=== PATIENT | female | born 1985 | race Hispanic/Latino ===

== ENCOUNTER 2024-12-14 16:22 | Emergency (ER) | payer BC ==
[~2024-12-14] VITALS: Ht 160 cm; Wt 63.5 kg
[2024-12-14 16:36] VITALS: BP 98/57; PULSE 60; RESP 16; TEMP 98.3; O2SAT 98
--- NOTE | 2024-12-14 16:46 | NUR ---
EAR CANNAL CLEANED BY
[2024-12-14] MEDS ORDERED: AMOX500C2 PO (16:48)
[2024-12-14] MEDS ORDERED: ISOP30DR11 OT (16:48)
--- NOTE | 2024-12-14 16:48 | ERN ---
General Chief Complaint: Earache Stated Complaint: RIGHT EAR PAIN Time Seen by MD: 16:27 Source: patient, family History of Present Illness Initial Comments Patient is a 39-year-old female coming in to be evaluated for right ear pain. Per patient she was cleaning her ear and shortly after that she states that she was having a hard time hearing. She also states that she has been having discomfort in the same ear. Past Medical History Past Medical History: No Pertinent History Past Surgical History: Female( History) LMP: Nov 01, 2024 ROS Dictation CONSTITUTIONAL: No chills, no fever, no weakness, no diaphoresis, no malaise. HEAD/FACE: No signs of trauma. EENT: No eye pain, no blurred vision, no tearing, no double vision, ear pain, no ear discharge, no nose pain, no nasal congestion, no throat pain, no throat swelling, no mouth pain. RESPIRATORY: No cough, no orthopnea, no SOB, no stridor, no wheezing. CARDIOVASCULAR: No chest pain, no edema, no palpitations, no syncope. GASTROINTESTINAL/ABDOMINAL: No abdominal pain, no constipation, no diarrhea, no nausea, no vomiting. GENITOURINARY: No abnormal discharge, no dysuria, no frequent urination, no hematuria. No complaints of pain in the genitals. MUSCULOSKELETAL: No back pain, no gout, no joint pain, no joint swelling, no muscle pain, no muscle stiffness, no neck pain. INTEGUMENTARY: No change in color, no change in hair/nails, no dryness, no lesion, no lumps, no rash. NEUROLOGICAL/PSYCH: No anxiety, not depressed, no emotional problem, no headache, no numbness, no pre-existing deficit, no history of seizures, no tremors, no weakness. HEMATOLOGIC/LYMPHATIC: Not anemic, no history of blood clots, no apparent bleeding, no bruising, glands not swollen. All Systems Negative, Except as Noted. Physical Exam Physical Exam Dictation VITAL SIGNS: Reviewed. GENERAL APPEARANCE: Alert, oriented x3, no acute distress, obese. HEAD AND FACE: Non-traumatic. EYES: PERRL, pink conjunctivas, eyelid no trauma, anterior chamber clear. EARS: Pinnas intact and no signs of trauma or erythema. Right Ear canals cerumen impaction. TMs no erythema. NOSE: No discharge, no bleeding. OROPHARYNX: Mouth normal, teeth no caries, tongue pink. Pharynx clear, no erythema. Tonsils no exudates, no abscesses noted. Mucous membrane moist. NECK: Supple, non-tender, no thyromegaly, no masses, no JVD, no bruits. BREAST: Deferred. CHEST: No tenderness, no crepitus, no paradoxical movement, no retractions. LUNGS: Clear, well-ventilated, symmetric, no rales, no wheezing, no rhonchi, no stridor, good breath sounds bilaterally. HEART: Regular rate, regular rhythm, no murmur, no gallops. VASCULAR: No peripheral edema. ABDOMEN: Soft, positive bowel sounds, nondistended, no guarding, nontender, no rebound, no masses no hepatomegaly, no splenomegaly, no Mathews's sign, no hernias. RECTAL: Deferred. GENITAL: Deferred. NEUROLOGICAL: Normal speech, gross motor function intact, gross sensory function intact. MUSCULOSKELETAL: Neck nontender, full range of motion, back nontender, full range of motion. EXTREMITIES: Nontender, full range of motion. SKIN: Color pink, dry, no turgor, no rash, no lacerations, no abrasions, no contusions. LYMPHATICS: Deferred. Results Laboratory and Microbiology Labs Reviewed?: Yes MDM MDM: Differential diagnosis: Cerumen impaction, otitis media, Rationale: Tests considered and ordered secondary to shared decision making include: Previous outside records reviewed: Old ER visits. Risk of complication and/or morbidity or mortality of patient management: None Medications-Per medication reconciliation Need for hospitalization: Patient does not meet criteria for hospitalization. Need for emergency major/minor surgery: No Patient is a 39-year-old female coming in complaining of right ear pain. On physical exam there is cerumen impaction of the right ear. External ear was washed with fluids cerumen was removed. Patient will be discharged in stable condition mild erythema of the tympanic membrane after removal of cerumen. Medication will be provided for symptomatic relief. ED Course Vital Signs Date Time Temp Pulse Resp B/P (MAP) Pulse Ox O2 Delivery O2 Flow Rate FiO2 12/14/24 16:36 98.2 60 16 98/57 98 Room Air* 0 21 12/14/24 16:25 98.2 61 12 98/53 98 Room Air Procedure Dictation Right ear cerumen impaction-using bulb suction apparatus fluid was introduced into the right external ear cerumen impaction was resolved cerumen was removed. DX & DISP Disposition: Discharge Departure Impression: Primary Impression: Otitis media Additional Impression: Impacted cerumen of right ear Condition: Stable Scripts Isopropyl Alcohol in Glycerin (Debrox Swimmer's Ear Drop) 95 %-5 % Drops 30 ML OT DAILY for 7 Days, #50 DROP Prov: GARCIA NAZARIO MD 12/14/24 Amoxicillin (Amoxicillin) 500 Mg Capsule 1 CAP PO TID for 10 Days, #30 CAP 0 Refills Prov: GARCIA NAZARIO MD 12/14/24 Additional Instructions: FOLLOW-UP WITH PRIMARY CARE PROVIDER IN 1 TO 2 DAYS. TAKE MEDICATIONS DIRECTED HERE IN THE EMERGENCY ROOM. OKAY TO CONTINUE HOME MEDICATIONS UNLESS OTHERWISE DISCUSSED DURING YOUR VISIT IN THE EMERGENCY ROOM TODAY. RETURN TO YOUR NEAREST EMERGENCY ROOM IF SYMPTOMS WORSEN OR IF THERE IS NO IMPROVEMENT. CALL 911 IF YOU NEED IMMEDIATE ASSISTANCE. TAKE TYLENOL [id number] NEEDED AND IF NO CONTRAINDICATIONS ARE PRESENT. INCREASE ORAL HYDRATION. A WOUND CULTURE OR URINE CULTURE WAS ORDERED HERE IN THE EMERGENCY ROOM DEPARTMENT PLEASE FOLLOW-UP WITH PRIMARY CARE PROVIDER AND ADVISE THEM TO GET REPORTS FROM OUR FACILITY. IF YOU HAD ANY LULY WRAP/SPLINTS THAT WERE APPLIED HERE, PLEASE DO NOT REMOVE THEM UNTIL YOU SEE YOUR PRIMARY CARE OR SPECIALTY. Referrals: Referrals: SELF,REFERRAL (PCP) SANCHO GONSALEZ MD, JAMES T MD Time of Disposition: 16:47 GARCIA NAZARIO MD Dec 14, 2024 16:48
== END 2024-12-14 16:56 | disposition home or self-care (01) ==
LOC: EDH 16:22
DX: H61.21 Impacted cerumen, right ear (principal); H66.91 Otitis media, unspecified, right ear
CPT/HCPCS: 69209; 99283